=== PATIENT | male | born 1980 | race Hispanic/Latino ===

== ENCOUNTER 2016-06-18 09:47 | Emergency (ER) | payer OTHER ==
[2016-06-18] MEDS ORDERED: Adacel (T-DAP) 0.5 ML VIAL ONE (10:07)
[2016-06-18] MEDS ORDERED: traMADol HCl 50 MG TAB ONE (10:07)
--- NOTE | 2016-06-18 10:38 | RAD ---
RIGHT FOREARM 2 VIEWS: HISTORY: Trauma to right forearm. He hit his right forearm when he was sandblasting with a metal median. Ex am requested for foreign body. FINDINGS/IMPRESSION: Numerous tiny radiopaque densities consistent with foreign bodies are seen in the soft tissues of th e volar aspect of the distal forearm. The visualized portions of the right radius and ulna are inta ct. POS: [facility]
[2016-06-18] MEDS ORDERED: Bacitracin Zinc 1 Packet ONE (10:45)
== END 2016-06-18 11:08 | disposition home or self-care (01) ==
LOC: NAV ERS 09:47
DX: S50.811A Abrasion of right forearm, initial encounter (principal); M79.5 Residual foreign body in soft tissue; X58.XXXA Exposure to other specified factors, initial encounter
CPT/HCPCS: 90471; 90715; 99001